=== PATIENT | male | born 1965 | race Caucasian/White ===

== ENCOUNTER 2019-09-15 06:18 | Outpatient (CLI) | payer BC, SELFPAY ==
[2019-09-15 17:27] LABS: SARS-CoV-2 RNA PCR Negative
== END 2019-09-15 06:19 | disposition home or self-care (01) ==
LOC: ANHCOVIDDT 06:18
PROVIDERS: PCP Family Medicine; Visit Provider Internal Medicine Gastroenterology
DX: Z01.812 Encounter for preprocedural laboratory examination (principal); Z11.59 Encounter for screening for other viral diseases
CPT/HCPCS: 87635; C9803; U0003

== ENCOUNTER 2019-09-18 02:46 | Day surgery (SDC) | payer BC, SELFPAY ==
[2019-09-11 10:15] VITALS: BMI 33.2
[2019-09-18 10:00] VITALS: BP 128/89; PULSE 71; RESP 16; TEMP 36.8; O2SAT 99
[2019-09-18] MEDS: LACTATED RINGERS 1,000 ML 150 ML IV CONT (10:10)
--- NOTE | 2019-09-18 11:02 | WPDANESEPPF ---
Anes - Initial Pre Proc Eval Procedure: Operation Date: 09/18/19 11:15 Proposed Procedures p Screening Colonoscopy - Gilmer Garcia MD Date/Time: 09/18/19 11:02 Surgeon: Gilmer Garcia MD Pre Op Diagnosis: neoplasm screening Patient Data Age: 54 Gender: M Height: 6 ft 4 in Weight: 120.4 kg Last Vital Signs Temp 98.3 F 09/18/19 10:00 Pulse 71 09/18/19 10:00 Resp 16 09/18/19 10:00 BP 128/89 09/18/19 10:00 Pulse Ox 99 09/18/19 10:00 Allergies Allergy/AdvReac Type Severity Reaction Status Date / Time No Known Allergies Allergy Verified 09/18/19 09:59 Home Medications Medication Instructions Recorded Confirmed Type hydrochlorothiazide 12.5 mg tablet 12.5 mg PO DAILY #30 tablet 04/12/19 09/18/19 Rx oxybutynin chloride 5 mg 5 mg PO DAILY #30 tablet 06/19/19 09/18/19 Rx tablet,extended release 24 hr zlxbtdgf-xsv-CX-lycopen-lutein 1 tablet PO DAILY 09/11/19 09/18/19 History [Men 50 Plus Multivitamin] Patient hx anesthesia problems: none Family hx anesthesia problems: none PMFSH Past Medical History Medical History (Updated 09/18/19 @ 11:02 by Alberto Pop MD) Hypertension Social History Social History Smoking status: Never smoker Alcohol intake: current Anes - Eval Final PreProcedure Day of Procedure 09/18/19 11:02 Patient weight: obese Heart: regular rate and rhythm Lungs: clear to auscultation Airway: Mallampati scale class II Neurological: alert and oriented Last oral intake: >/= 8 hours ASA classification: II Emergent: no Anesthetic plan: proceed Anesthesia type and monitoring: general GIVS and standard monitoring Informed Consent: The patient's anesthetic plan and its attendant risks and benefits were discussed with the patient/family/POA. Questions were solicited and answers provided to the satisfaction of the patient/family/POA.
--- NOTE | 2019-09-18 11:06 | PM.HPGS ---
History of Present Illness History of Present Illness Consent: Risks, benefits, and alternatives have been discussed and questions answered. Patient agrees to proceed with procedure. Chief complaint: neoplasm screening Narrative: Roldan Galicia is a 54 year old male with colon polyps 5 years ago. Review of Systems Constitutional: Constitutional: Denies headache(s) and Denies weakness Eyes: Eyes: Denies blurry vision ENT: Reports Normal hearing present, Denies headache(s) and Denies neck pain Cardiovascular: Cardiovascular: Denies chest pain and Denies dyspnea Respiratory: Respiratory: Denies dyspnea Gastrointestinal: Gastrointestinal: Reports no additional gastrointestinal complaints Genitourinary: Genitourinary: Denies dysuria Musculoskeletal: Musculoskeletal: Denies neck pain Integumentary/Breasts: Skin/Breast: Denies dry skin Neurologic: Reports Normal hearing present, Denies headache(s) and Denies weakness Psychiatric: Psychiatric: Denies anxiety Endocrine: Endocrine: Denies change in body appearance Hematologic/Lymphatic: Hematologic/Lymphatic: Denies easy bleeding Allergic/Immunologic: Allergic/Immunologic: Denies urticaria FOR[facility]LY [facility] Past Medical History Medical History (Updated 09/18/19 @ 11:07 by Gilmer Garcia MD) Colon polyp Hypertension Social History Social History Smoking status: Never smoker Alcohol intake: current Meds Home Medications and Allergies Home Medications Medication Instructions Recorded Confirmed Type hydrochlorothiazide 12.5 mg tablet 12.5 mg PO DAILY #30 tablet 04/12/19 09/18/19 Rx oxybutynin chloride 5 mg 5 mg PO DAILY #30 tablet 06/19/19 09/18/19 Rx tablet,extended release 24 hr rzslarhx-tzt-IH-lycopen-lutein 1 tablet PO DAILY 09/11/19 09/18/19 History [Men 50 Plus Multivitamin] Allergies Allergy/AdvReac Type Severity Reaction Status Date / Time No Known Allergies Allergy Verified 09/18/19 09:59 Vital Signs Vital Signs - 24 hr 09/18/19 10:00 Temperature 98.3 F Pulse Rate 71 Respiratory Rate 16 Blood Pressure 128/89 Pulse Oximetry 99 Exam Const: General: comfortable and no acute distress HENMT: General nose exam: Normal nares present Eyes: General: appearance normal, both eyes and all related structures Neck: Neck: no JVD Resp: Auscultation: clear to auscultation bilaterally Cardio: Rate: regular rate Rhythm: regular rhythm GI: Inspection: non-distended GI Palp: Yes Soft to palpation Skin: General skin exam: normal color Neuro: General: gait normal Speech: normal speech Extrem: General: normal to inspection Psych: Mental Status: mental status grossly normal Assessment and Plan Assessment and plan (1) Colon polyp: Code(s): K63.5 - Polyp of colon Status: Acute Assessment and Plan: will proceed with colonoscopy (2) Hypertension: Code(s): I10 - Essential (primary) hypertension Status: Acute
[2019-09-18 11:27] VITALS: BP 122/87; PULSE 69; RESP 16; O2SAT 99
[2019-09-18 11:37] VITALS: BP 129/80; PULSE 72; RESP 16; O2SAT 99
[2019-09-18 12:03] VITALS: BP 130/84; PULSE 76; RESP 16; O2SAT 99
== END 2019-09-18 12:04 | disposition home or self-care (01) ==
PROVIDERS: PCP Family Medicine; Visit Provider Internal Medicine Gastroenterology
PROC: 0DJD8ZZ Inspection of Lower Intestinal Tract, Via Natural or Artificial Opening Endoscopic (ICD-10-PCS; CPT 45378; principal; 2019-09-18 11:15)
DX: Z12.11 Encounter for screening for malignant neoplasm of colon (principal); D12.5 Benign neoplasm of sigmoid colon; K63.5 Polyp of colon; K64.8 Other hemorrhoids; I10 Essential (primary) hypertension; E66.9 Obesity, unspecified; Z68.32 Body mass index [BMI] 32.0-32.9, adult
CPT/HCPCS: 45380; 45385; 88305; J2704; J7120

== ENCOUNTER → 2020-10-06 10:14 | Outpatient (CLI) | payer OTHER, BC, SELFPAY ==
--- NOTE | ~2020-10-06 | XR_ITS ---
EXAMINATION: XR shoulder RT min 2V DATE: 10/06/2020 10:38 INDICATION: Right shoulder pain after pulling injury 5 days prior TECHNIQUE: AP internally and externally rotated, AP oblique externally rotated and axillary views of the right shoulder were obtained. COMPARISON: None FINDINGS: Normal alignment. No fracture.Mild acromioclavicular and glenohumeral osteoarthritis with mild nonun iform joint space narrowing but without significant osteophytosis. Visualized portions of the lungs a re clear. Soft tissues are unremarkable. IMPRESSION: Mild right acromioclavicular and glenohumeral osteoarthritis. No acute osseous abnormality. Reviewed, dictated and finalized at location A.
== END ==
PROVIDERS: PCP Family Medicine; Visit Provider Physician Assistant
DX: M25.511 Pain in right shoulder (principal); M19.011 Primary osteoarthritis, right shoulder
CPT/HCPCS: 73030

== ENCOUNTER → 2020-10-22 12:42 | Outpatient (CLI) | payer OTHER, BC, SELFPAY ==
--- NOTE | ~2020-10-22 | MR_ITS ---
EXAMINATION: MR shoulder RT wo con DATE: 10/22/2020 13:37 INDICATION: Unspecified right shoulder pain TECHNIQUE: Magnetic resonance imaging (MRI) of the right shoulder was performed without intravenous c ontrast. Sequences included axial PD-weighted FS FSE, coronal oblique PD-weighted FS FSE, coronal obl ique T2-weighted FS FSE, sagittal PD-weighted FS FSE, and sagittal T1-weighted SE. COMPARISON: Right shoulder radiographs dated 10/06/2020 FINDINGS: Coracoacromial arch: The acromion undersurface is curved in morphology (type II). The coracoacromial ligament is normal. M ild acromioclavicular osteoarthritis. Rotator cuff: The supraspinatus, infraspinatus and teres minor tendons are normal. The subscapularis tendon is norm al. Normal rotator cuff muscle bulk and signal. Biceps tendon, glenoid labrum and glenohumeral cartilage: Long head of the biceps tendon is normal. There is a subtle linear tear extending into the substance of the 12:00 position of the superior glenoid labrum and progression to moderate amorphous degenerati ve tearing at the 11:00 position of the posterior superior glenoid labrum. There is additional tear a t the base of the fore-5:00 position of the anteroinferior glenoid labrum. There is partial thickness cartilage loss and chondral fissuring along the anterior to anteroinferior glenoid with minimal suba rticular edema along the 2:30 position of the anterior rim of the glenoid. Fluid: Physiologic amount of fluid in the glenohumeral joint and biceps tendon sheath. No loose osteochondra l bodies. No abnormal fluid signal in the subacromial/subdeltoid bursa to suggest bursitis. Bones: Normal marrow signal with no edema, fracture or abnormal marrow replacing process. Mild cystic change at the lesser tuberosity. IMPRESSION: 1. Mild glenohumeral osteoarthritis with tears at the anteroinferior and superior to posterior superi or glenoid labrum. 2. Mild acromion clavicular osteoarthritis. Reviewed, dictated and finalized at location A. IMPRESSION: 1. Mild glenohumeral osteoarthritis with tears at the anteroinferior and superi or to posterior superior glenoid labrum. 2. Mild acromion clavicular osteoarthritis.
== END ==
PROVIDERS: PCP Family Medicine; Visit Provider Family Medicine
DX: M17.11 Unilateral primary osteoarthritis, right knee (principal); R20.0 Anesthesia of skin
CPT/HCPCS: 73221

== ENCOUNTER 2020-11-18 12:41 | Outpatient (CLI) | payer OTHER, SELFPAY ==
--- NOTE | ~2020-11-18 | XR_ITS ---
EXAMINATION: XR lg joint inject/asp w image DATE: 11/18/2020 13:23 INDICATION: Right shoulder arthritis and strain. TECHNIQUE: A time-out was performed to verify the patient's name, date of , and procedure to b e performed. The procedure including the risks, benefits, and alternatives was discussed with the pat ient. Risks discussed included bleeding and infection. The patient understood the risks and agreed to proceed. The skin overlying the right shoulder joint was prepped and draped in usual sterile fashio n. Anesthetic was administered with 1% lidocaine subcutaneously. A 22 G needle was advanced under f luoroscopic guidance into the joint. Injection of 1 mL of Omnipaque 240 confirmed intra-articular po sition of the needle. Subsequently, injectate consisting of 3 mL 1% lidocaine and 1 mL 80 mg/mL Depo -Medrol was instilled. The needle was removed and the entry site was cleaned and dressed. There wer e no immediate complications. Fluoroscopy exposure time was 0.1 minutes. The total number of images w as 2. FINDINGS: Real-time fluoroscopy demonstrates the needle in the right glenohumeral joint. IMPRESSION: 1. Fluoroscopy guided right glenohumeral joint injection of local anesthetic and steroid. Reviewed, dictated and finalized at location A. IMPRESSION: 1. Fluoroscopy guided right glenohumeral joint injection of local anesthetic an d steroid.
== END 2020-11-18 12:42 | disposition home or self-care (01) ==
LOC: ANHIMG 12:45
PROVIDERS: PCP Family Medicine; Visit Provider Orthopaedic Surgery
DX: S46.811A Strain of other muscles, fascia and tendons at shoulder and upper arm level, right arm, initial encounter (principal); M19.011 Primary osteoarthritis, right shoulder
CPT/HCPCS: 20610; 77002; J1040; Q9966

== ENCOUNTER → 2021-01-14 08:23 | Outpatient (CLI) | payer BC, SELFPAY ==
[2021-01-14 17:30] LABS: SARS-CoV-2 RNA PCR Negative
== END ==
PROVIDERS: PCP Family Medicine; Visit Provider Family Medicine
DX: J02.9 Acute pharyngitis, unspecified (principal); R50.9 Fever, unspecified; R53.83 Other fatigue; Z20.822 Contact with and (suspected) exposure to COVID-19
CPT/HCPCS: C9803; U0003; U0005

== ENCOUNTER 2021-06-19 07:53 | Outpatient (CLI) | payer BC, SELFPAY ==
--- NOTE | 2021-06-19 | ECG_ITS ---
Measurements Intervals [place] Rate: 68 P: 5 DC: 157 QRS: -6 QRSD: 106 T: 30 QT: 385 QTc: 411 Interpretive Statements SINUS RHYTHM WITHIN NORMAL LIMITS NONDIAGNOSTIC INFERIOR Q-WAVE NO PREVIOUS ECG AVAILABLE FOR COMPARISON Electronically Signed On 06-19-2021 11:16:27 CDT by Sam Nunez M.D.
[2021-06-19 08:45] LABS: Anion Gap 9 mmol/L (8-16); Blood Urea Nitrogen 22 mg/dL (9-20); Calcium 9.6 mg/dL (8.4-10.2); Carbon Dioxide 24 mmol/L (22-30); Chloride 103 mmol/L (98-107); Estimated Glomerular Filt Rate > 60; Glucose 127 mg/dL (65-110); Potassium 4.4 mmol/L (3.4-5.0); Sodium 136 mmol/L (137-145)
== END 2021-06-19 07:54 | disposition home or self-care (01) ==
LOC: ANHLAB 08:02
PROVIDERS: PCP Family Medicine; Visit Provider Orthopaedic Surgery Hand Surgery
DX: M25.511 Pain in right shoulder (principal)
CPT/HCPCS: 36415; 80048; 93005

== ENCOUNTER 2022-12-23 13:29 | Outpatient (CLI) | payer OTHER, SELFPAY | END 2022-12-23 13:30 | disposition home or self-care (01) | PROVIDERS: PCP Family Medicine; Visit Provider Family Medicine | DX: H90.3 Sensorineural hearing loss, bilateral (principal) | CPT/HCPCS: 92557; 92567 ==

== ENCOUNTER 2024-01-09 14:09 | Outpatient (CLI) | payer OTHER, SELFPAY ==
--- NOTE | ~2024-01-09 | XR_ITS ---
EXAMINATION: XR heel LT min 2V DATE: 01/09/2024 14:26 INDICATION: Left heel pain. TECHNIQUE: 2 views of left calcaneus were obtained. COMPARISON: None. FINDINGS: Alignment is normal. No fracture. Joint spaces are normal. IMPRESSION: 1. Normal left calcaneus. Reviewed, dictated and finalized at location B. IMPRESSION: 1. Normal left calcaneus.
== END 2024-01-09 14:10 | disposition home or self-care (01) ==
LOC: GOSHIMG 14:09
PROVIDERS: PCP Nurse Practitioner; Visit Provider Student in an Organized Health Care Education/Training Program
DX: M79.672 Pain in left foot (principal)
CPT/HCPCS: 73650

== ENCOUNTER 2024-07-18 10:19 | Outpatient (CLI) | payer OTHER, SELFPAY | END 2024-07-18 10:20 | disposition home or self-care (01) | LOC: GOSHIMG 10:20 | PROVIDERS: PCP Family Medicine; Visit Provider Nurse Practitioner | DX: M25.561 Pain in right knee (principal) | CPT/HCPCS: 73562 ==

== ENCOUNTER 2024-10-09 14:10 | Outpatient (CLI) | payer OTHER, SELFPAY ==
--- NOTE | ~2024-10-09 | MR_ITS ---
MRI of the right knee Clinical history: Pain Technique: Coronal proton density and proton density-weighted images, sagittal proton-density and T2 fat-sat images, and axial proton-density fat-saturated images were acquired. Following intravenous ad ministration of 20 cc MultiHance gadolinium, T1-weighted fat-sat imaging was performed in the axial, coronal, and sagittal planes. Findings: Anterior and posterior cruciate ligaments are intact. Medial collateral ligament and the la teral collateral complex are intact. Popliteus tendon is intact. There is a large vertical/radial tear of the posterior horn of the medial meniscus. No lateral menisc al tear seen. 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 There is focal moderate to high-grade chondral malacia at the femoral trochlea. Extensor mechanism is intact. Minimal joint effusion present with minimal Macias's cyst. Impression: Large vertical/radial tear of the posterior horn of the medial meniscus. Degenerative changes, as above. Reviewed, dictated and finalized at location . Impression: Large vertical/radial tear of the posterior horn of the medial meniscus. Degenerative changes, as above.
== END 2024-10-09 14:11 | disposition home or self-care (01) ==
PROVIDERS: PCP Family Medicine; Visit Provider Nurse Practitioner
DX: S83.241A Other tear of medial meniscus, current injury, right knee, initial encounter (principal); M17.11 Unilateral primary osteoarthritis, right knee; X58.XXXA Exposure to other specified factors, initial encounter
CPT/HCPCS: 73723; A9577

== ENCOUNTER 2024-11-22 00:21 | Day surgery (SDC) | payer OTHER, SELFPAY ==
[2024-11-07 13:42] VITALS: BMI 29.7
[2024-11-22 12:02] VITALS: BP 116/89; PULSE 82; RESP 19; TEMP 36.6; O2SAT 98; BMI 29.5
[2024-11-22] MEDS: LACTATED RINGERS 1,000 ML 150 ML IV CONT (12:11)
--- NOTE | 2024-11-22 12:19 | WPDANESEPPF ---
Anes - Initial Pre Proc Eval Procedure: Operation Date: 11/22/24 12:45 Proposed Procedures p Esophagogastroduodenoscopy - Gilmer Garcia MD Date/Time: 11/22/24 12:19 Surgeon: Gilmer Garcia MD Pre Op Diagnosis: Dysphagia, unspecified Patient Data Age: 59 Gender: M Height: 1.93 m Weight: 110.1 kg Last Vital Signs Temp 36.6 C 11/22/24 12:02 Pulse 82 11/22/24 12:02 Resp 19 11/22/24 12:02 BP 116/89 11/22/24 12:02 Pulse Ox 98 11/22/24 12:02 O2 Del Method Room Air 11/22/24 12:02 Allergies Allergy/AdvReac Type Severity Reaction Status Date / Time No Known Allergies Allergy Verified 11/22/24 12:01 Home Medications ?Medication ?Instructions ?Recorded ?Confirmed ?Type tamsulosin 0.4 mg capsule See Rx Instructions .Route 10/09/24 11/22/24 Rx .COMPLEX #180 caps hydrochlorothiazide 12.5 mg tablet See Rx Instructions .Route 10/24/24 11/22/24 Rx .COMPLEX #90 tabs lisinopril 40 mg tablet 40 mg PO DAILY #90 tabs 10/24/24 11/22/24 Rx Patient hx anesthesia problems: none Family hx anesthesia problems: none Results Review: All pre-operative results and documents have been reviewed as part of the pre-operative evaluation. [facility] Past Medical History Medical History Colon polyp Hypertension Social History Social History (Updated 11/22/24 @ 12:24 by Ky Hayes DO) Smoking status: Never smoker Tobacco type: cigarettes Smokeless tobacco user: chewing tobacco Alcohol intake: current Alcohol use details: hasn't drank in 6 years Substance use: never Substance use type: does not use Lack of Transportation: No Lack of Food: Never True Current Housing: I Have Housing Concerned About Future Housing: No Difficulty Paying Gas/Electric Bills: No Difficulty Paying for Meds: No Currently Unemployed: No Education: Associate Degree Difficulty w/ Childcare or Family Care: No Living arrangements: with family Spiritual care concerns: No Anes - Eval Final PreProcedure Day of Procedure 11/22/24 12:19 Patient weight: overweight Heart: regular rate and rhythm Lungs: clear to auscultation Airway: Mallampati scale class II Neurological: alert and oriented Last oral intake: >/= 8 hours ASA classification: II Emergent: no Anesthetic plan: proceed Anesthesia type and monitoring: general GIVS and standard monitoring Results Review: All pre-operative results and documents have been reviewed as part of the pre-operative evaluation. Informed Consent: The patient's anesthetic plan and its attendant risks and benefits were discussed with the patient/family/POA. Questions were solicited and answers provided to the satisfaction of the patient/family/POA.
--- NOTE | 2024-11-22 13:13 | PM.HPGS ---
History of Present Illness History of Present Illness Consent: Risks, benefits, and alternatives have been discussed and questions answered. Patient agrees to proceed with procedure. Chief complaint: Dysphagia, unspecified Narrative: Roldan Galicia is a 59 year old male here for first egd, h/o dysphagia Review of Systems Review of Systems: All systems reviewed & are unremarkable except as noted in HPI and below PMFSH Past Medical History Medical History Colon polyp Hypertension Social History Social History (Updated 11/22/24 @ 12:24 by Ky Hayes, ) Smoking status: Never smoker Tobacco type: cigarettes Smokeless tobacco user: chewing tobacco Alcohol intake: current Alcohol use details: hasn't drank in 6 years Substance use: never Substance use type: does not use Lack of Transportation: No Lack of Food: Never True Current Housing: I Have Housing Concerned About Future Housing: No Difficulty Paying Gas/Electric Bills: No Difficulty Paying for Meds: No Currently Unemployed: No Education: Associate Degree Difficulty w/ Childcare or Family Care: No Living arrangements: with family Spiritual care concerns: No Meds Home Medications and Allergies Home Medications ?Medication ?Instructions ?Recorded ?Confirmed ?Type tamsulosin 0.4 mg capsule See Rx Instructions .Route 10/09/24 11/22/24 Rx .COMPLEX #180 caps hydrochlorothiazide 12.5 mg tablet See Rx Instructions .Route 10/24/24 11/22/24 Rx .COMPLEX #90 tabs lisinopril 40 mg tablet 40 mg PO DAILY #90 tabs 10/24/24 11/22/24 Rx Allergies Allergy/AdvReac Type Severity Reaction Status Date / Time No Known Allergies Allergy Verified 11/22/24 12:01 Vital Signs Vital Signs - 24 hr 11/22/24 12:02 Temperature 97.9 F Pulse Rate 82 Respiratory Rate 19 Blood Pressure 116/89 Pulse Oximetry 98 Oxygen Delivery Room Air Exam Const: General: comfortable and no acute distress HENMT: Face/Nose/Sinus: Normal nares present Eyes: General: appearance normal, both eyes and all related structures Neck: Neck: no JVD Resp: Auscultation: clear to auscultation bilaterally Cardio: Rate: regular rate Rhythm: regular rhythm GI: Inspection: non-distended GI Palp: Yes Soft to palpation Skin: General skin exam: normal color Neuro: Speech: normal speech Extrem: General: normal to inspection Psych: Mental Status: mental status grossly normal Assessment and Plan Assessment and plan (1) Dysphagia: Code(s): R13.10 - Dysphagia, unspecified Status: Acute Assessment and Plan: egd with bx
--- NOTE | 2024-11-22 13:19 | S_PTH ---
PATIENT: Roldan Galicia LOC: [facility]#:[id number] AGE/SX: 59/M ROOM: RE11/22/[address]: Gilmer Garcia MD : 1965 BED: DIS: 11/22/2024 SPEC #: [id number] RECD: 11/22/24 13:43 STATUS: DANYEL REQ #: [id number] NILDA: 11/22/24 13:[address]: Gilmer Garcia DEPT: [facility] Surgical RECD BY: Lucía Larsen ENTERED: 11/22/24 13:43 SP TYPE: Surgical OTHR DR: Benita Samuels DO Tissues: A - Esophageal Biopsy B - Esophageal Biopsy C - Gastric Biopsy Procedures: Hematoxylin and Eosin Stain Gross and Microscopic Level 4
[2024-11-22 13:23] VITALS: BP 128/81; PULSE 69; RESP 15; O2SAT 98
[2024-11-22 13:33] VITALS: BP 129/88; PULSE 73; RESP 16; O2SAT 98
[2024-11-22 13:43] VITALS: BP 125/79; PULSE 62; RESP 19; O2SAT 98
== END 2024-11-22 13:43 | disposition home or self-care (01) ==
PROVIDERS: PCP Family Medicine; Referring Provider Nurse Practitioner; Visit Provider Internal Medicine Gastroenterology
PROC: 0DJ08ZZ Inspection of Upper Intestinal Tract, Via Natural or Artificial Opening Endoscopic (ICD-10-PCS; CPT 43239; principal; 2024-11-22 12:45)
DX: K20.0 Eosinophilic esophagitis (principal); I10 Essential (primary) hypertension; F17.220 Nicotine dependence, chewing tobacco, uncomplicated; Z86.0100 Personal history of colon polyps, unspecified
CPT/HCPCS: 43239; 88305; J2003; J2704; J7120

== ENCOUNTER 2024-11-30 00:17 | Day surgery (SDC) | payer OTHER, SELFPAY ==
[2024-11-27 15:27] VITALS: BMI 29.5
[2024-11-30 06:17] VITALS: BP 109/78; PULSE 76; RESP 16; TEMP 36.1; O2SAT 98
[2024-11-30] MEDS: LACTATED RINGERS 1,000 ML 150 ML IV CONT (06:27)
--- NOTE | 2024-11-30 07:03 | WPDANESEPPF ---
Anes - Initial Pre Proc Eval Procedure: Operation Date: 11/30/24 07:30 Proposed Procedures p Screening Colonoscopy - Gilmer Garcia MD Date/Time: 11/30/24 07:03 Surgeon: Gilmer Garcia MD Pre Op Diagnosis: Encounter for screening for malignant neoplasm of Patient Data Age: 59 Gender: M Height: 1.93 m Weight: 107.5 kg Last Vital Signs Temp 36.1 C L 11/30/24 06:17 Pulse 76 11/30/24 06:17 Resp 16 11/30/24 06:17 BP 109/78 11/30/24 06:17 Pulse Ox 98 11/30/24 06:17 O2 Del Method Room Air 11/30/24 06:17 Allergies Allergy/AdvReac Type Severity Reaction Status Date / Time No Known Allergies Allergy Verified 11/30/24 06:16 Home Medications ?Medication ?Instructions ?Recorded ?Confirmed ?Type hydrochlorothiazide 12.5 mg tablet See Rx Instructions .Route 10/24/24 11/30/24 Rx .COMPLEX #90 tabs lisinopril 40 mg tablet 40 mg PO DAILY #90 tabs 10/24/24 11/30/24 Rx tamsulosin 0.4 mg capsule 0.4 mg PO DAILY 11/27/24 11/30/24 History Patient hx anesthesia problems: none Family hx anesthesia problems: none Results Review: All pre-operative results and documents have been reviewed as part of the pre-operative evaluation. [facility] Past Medical History Medical History Colon polyp Hypertension Social History Social History Smoking status: Never smoker Tobacco type: cigarettes Smokeless tobacco user: chewing tobacco Alcohol intake: never Alcohol use details: hasn't drank in 6 years Substance use: never Substance use type: does not use Lack of Transportation: No Lack of Food: Never True Current Housing: I Have Housing Concerned About Future Housing: No Difficulty Paying Gas/Electric Bills: No Difficulty Paying for Meds: No Currently Unemployed: No Education: Associate Degree Difficulty w/ Childcare or Family Care: No Living arrangements: with family Spiritual care concerns: No Anes - Eval Final PreProcedure Day of Procedure 11/30/24 07:03 Patient weight: overweight Heart: regular rate and rhythm Lungs: clear to auscultation Airway: Mallampati scale class II Neurological: alert and oriented Last oral intake: >/= 8 hours ASA classification: II Emergent: no Anesthetic plan: proceed Anesthesia type and monitoring: general GIVS and standard monitoring Results Review: All pre-operative results and documents have been reviewed as part of the pre-operative evaluation. Informed Consent: The patient's anesthetic plan and its attendant risks and benefits were discussed with the patient/family/POA. Questions were solicited and answers provided to the satisfaction of the patient/family/POA.
--- NOTE | 2024-11-30 07:29 | PM.HPGS ---
History of Present Illness History of Present Illness Consent: Risks, benefits, and alternatives have been discussed and questions answered. Patient agrees to proceed with procedure. Chief complaint: Encounter for screening for malignant neoplasm of Narrative: Roldan Galicia is a 59 year old male with colon polyp in 2019 Review of Systems Review of Systems: All systems reviewed & are unremarkable except as noted in HPI and below PMFSH Past Medical History Medical History Colon polyp Hypertension Social History Social History Smoking status: Never smoker Tobacco type: cigarettes Smokeless tobacco user: chewing tobacco Alcohol intake: never Alcohol use details: hasn't drank in 6 years Substance use: never Substance use type: does not use Lack of Transportation: No Lack of Food: Never True Current Housing: I Have Housing Concerned About Future Housing: No Difficulty Paying Gas/Electric Bills: No Difficulty Paying for Meds: No Currently Unemployed: No Education: Associate Degree Difficulty w/ Childcare or Family Care: No Living arrangements: with family Spiritual care concerns: No Meds Home Medications and Allergies Home Medications ?Medication ?Instructions ?Recorded ?Confirmed ?Type hydrochlorothiazide 12.5 mg tablet See Rx Instructions .Route 10/24/24 11/30/24 Rx .COMPLEX #90 tabs lisinopril 40 mg tablet 40 mg PO DAILY #90 tabs 10/24/24 11/30/24 Rx tamsulosin 0.4 mg capsule 0.4 mg PO DAILY 11/27/24 11/30/24 History Allergies Allergy/AdvReac Type Severity Reaction Status Date / Time No Known Allergies Allergy Verified 11/30/24 06:16 Vital Signs Vital Signs - 24 hr 11/30/24 06:17 Temperature 97 F L Pulse Rate 76 Respiratory Rate 16 Blood Pressure 109/78 Pulse Oximetry 98 Oxygen Delivery Room Air Exam Const: General: comfortable and no acute distress HENMT: Face/Nose/Sinus: Normal nares present Eyes: General: appearance normal, both eyes and all related structures Neck: Neck: no JVD Resp: Auscultation: clear to auscultation bilaterally Cardio: Rate: regular rate Rhythm: regular rhythm GI: Inspection: non-distended GI Palp: Yes Soft to palpation Skin: General skin exam: normal color Neuro: Speech: normal speech Extrem: General: normal to inspection Psych: Mental Status: mental status grossly normal Assessment and Plan Assessment and plan (1) Colon polyp: Code(s): K63.5 - Polyp of colon Status: Acute Assessment and Plan: colonoscopy
--- NOTE | 2024-11-30 07:39 | S_PTH ---
PATIENT: Roldan Galicia LOC: [facility]#:[id number] AGE/SX: 59/M ROOM: RE11/30/[address]: Gilmer Garcia MD : 1965 BED: DIS: 11/30/2024 SPEC #: [id number] RECD: 11/30/24 09:49 STATUS: DANYEL REEster #: [id number] NILDA: 11/30/24 07:[address]: Gilmer Garcia DEPT: [facility] Surgical RECD BY: Lucía Larsen ENTERED: 11/30/24 09:49 SP TYPE: Surgical OTHR DR: Benita Samuels DO Tissues: A - Colon Polypectomy Procedures: Hematoxylin and Eosin Stain Gross and Microscopic Level 4
[2024-11-30 07:44] VITALS: BP 101/70; PULSE 71; RESP 16; O2SAT 95
[2024-11-30 07:54] VITALS: BP 98/71; PULSE 68; RESP 14; O2SAT 94
[2024-11-30 08:04] VITALS: BP 115/84; PULSE 68; RESP 15; O2SAT 98
[2024-11-30] MEDS: PROPARACAINE HCL 0.5% 15 ML OPHTH SOLN 1 DROP EACH EYE (08:14)
[2024-11-30] MEDS: DICLOFENAC SODIUM 0.1% OPHTH SOLN 2.5 ML BOTTLE 1 DROP EACH EYE (08:21)
== END 2024-11-30 08:26 | disposition home or self-care (01) ==
PROVIDERS: PCP Family Medicine; Visit Provider Internal Medicine Gastroenterology
PROC: 0DJD8ZZ Inspection of Lower Intestinal Tract, Via Natural or Artificial Opening Endoscopic (ICD-10-PCS; CPT 45378; principal; 2024-11-30 07:30)
DX: Z12.11 Encounter for screening for malignant neoplasm of colon (principal); K63.5 Polyp of colon; K64.8 Other hemorrhoids
CPT/HCPCS: 45385; 88305; A9270; J2704; J7120

== ENCOUNTER 2024-12-19 10:17 | Outpatient (CLI) | payer OTHER, SELFPAY ==
--- NOTE | 2024-12-19 10:33 | ECG_ITS ---
Test Date: 2024-12-19 10:45:18 Measurements Intervals [place] Rate: 98 P: 49 WV: 160 QRS: -37 QRSD: 102 T: 17 QT: 355 QTc: 455 Interpretive Statements SINUS RHYTHM LEFT AXIS DEVIATION DELAYED PRECORDIAL R/S TRANSITION BORDERLINE ST-T WAVE ABNORMALITY- INFERIOR LEADS BASELINE ARTIFACT- II, III, AVF, V5 BORDERLINE ECG No previous ECG available for comparison Electronically Signed On 12-19-2024 10:48:10 CDT by Sin Cai D.O.
== END 2024-12-19 10:18 | disposition home or self-care (01) ==
LOC: ANHSURGERY 10:22
PROVIDERS: PCP Family Medicine; Visit Provider Orthopaedic Surgery
DX: Z01.810 Encounter for preprocedural cardiovascular examination (principal); R94.31 Abnormal electrocardiogram [ECG] [EKG]; I10 Essential (primary) hypertension
CPT/HCPCS: 93005

== ENCOUNTER 2024-12-21 00:44 | Day surgery (SDC) | payer OTHER, SELFPAY ==
--- NOTE | 2024-12-17 11:18 | SUR.PREOP ---
[facility] has started construction of its new state of the art ER which will open Spring 2026. With this, we anticipate parking may be a challenge for some our surgical patients and families. Parking spaces are limited but are available for all Surgical, obstetrics, and ER patients sharing this lot. If you arrive and find you are having a hard time finding a parking space, please note that we understand the challenges, please drive around the hospital and park near Hospital Entrance 1. When you enter this entrance, you can ask a volunteer to direct or take you back to the surgical waiting area to check in. We appreciate everyone?s understanding of these expected challenges while we build for your future. Report to the Outpatient Waiting Room, entrance under the green pavilion located off [address], at time _830am__ on date _12/21/24__. Planned Procedure Time: __1030__.? Time changes happen often and if your time is changed the preop area will call you the afternoon before. - You and your visitor will be asked to self-screen and do not enter if you have any COVID symptoms. Please call surgeon if you need to reschedule. - A mask is optional within the hospital at this time. Patients may have clear liquids (water, carbonated beverages, clear teas, apple juice) until 3 hours prior to surgery with a maximum of 20 ounces. - No food from midnight until time of surgery and no smoking, or chewing tobacco (or any form of nicotine). No chewing gum, candy or mints. Take only the following medications with a SIP of water on the morning of surgery: ___None DO NOT STOP ANY OF YOUR OTHER PRESCRIPTION MEDICATIONS PRIOR TO SURGERY EXCEPT THE FOLLOWING Hold all vitamins and supplements for 3 days per anesthesiologist. Medications to discontinue per physician N/a Date to take last dose____N/a Please no make-up, nail uzbek, hairspray, perfume, deodorant, or body powder the day of surgery.? No jewelry (including any body piercings) or valuables the day of surgery, leave them at home.? Please take a shower or bath the night before, or the morning of, surgery with an antibacterial soap.? Wear comfortable, loose fitting clothing.? Children are encouraged to wear pajamas. - Jewelry must be removed prior to entering the operating room.? Rings and piercings that are not removed may be cut off. - The hospital will not accept responsibility for valuables.? - Please leave all valuables, including medications, at home the day of surgery. If you are going home after surgery, a licensed feeder driver must drive you home.? - NO public transportation without another adult if you receive anesthesia. - We recommend that an adult stay with you for 24 hours following discharge. - We also recommend that you do not drive, make important decision, drink alcoholic beverages, or take any drugs that were not prescribed by your health care provider for at least 24 hours after your discharge time. Follow any additional instructions given to you from your surgeon. Telephone instructions given to __John____and asked if any additional questions and then verbalized understanding. Patient advised to call surgeon office or pre surgery nurse liaison [phone] if any additional questions.
[2024-12-21] VITALS (8 sets, daily range): BP systolic 112–160; BP diastolic 75–99; PULSE 65–83; RESP 13–18; TEMP 36.3–37.1; O2SAT 94–100
--- OUTSIDE RECORDS SUMMARY | 2024-12-21 00:47 | XMS_ITS | Data Portability ---
Author Organization [facility] Address [address] [place] [address] Assessment No assessment recorded. Plan of Treatment Reminders Order Date Submit Date Provider Last Modified By Organization Details Last Modified Time Details Appointments None recorded. Lab SARS CoV 2 RNA (COVID-19), QL, automotive parts specialist-PCR, respiratory specimen - [place] 2:30 2019 020 [facility] (Lab), [address] [place], [address], 0 16:44:40 Referral None recorded. Procedures None recorded. Surgeries None recorded. Imaging None recorded. Medication Orders None recorded. Patient TargetsNo targets recorded. Patient InstructionsNo instructions recorded. Reason for Referral None Reported. Results Created Date Observation Date Name Description Value Unit Range Abnormal Flag Note LastModifiedBy Organization Detail LastModifiedTime 12/10/19 20 12/10/2019 SARS CoV 2 RNA (COVI D-19) , QL, automotive parts specialist-P CR, respi rator y speci men sars - cov - 2 PCR NEGATI VE mL Not Available [facility] (Lab) [address] [place], [address], 12/11/2019 16:44:40 12/10/19 20 12/10/2019 SARS CoV 2 RNA (COVI D-19) , QL, automotive parts specialist-P CR, respi rator y speci men covidcom1 COMME NTS: This assay is desig trevor to detec t the RdRp and N genes of SARS- CoV-2 using nucle ic acid ampli ficat ion. A negat rodney resul t does not precl ude the possi bilit y of 2019- nCoV infec tion since the adequ acy of sampl e colle ction and/o r low viral burde n may resul t in the prese nce of viral nucle ic acids level s below the carola tical sensi tivit y of this test metho d. Not Available [facility] (Lab) [address], [place], [address], 12/11/2019 16:44:40 12/10/19 20 12/10/2019 SARS CoV 2 RNA (COVI D-19) , QL, automotive parts specialist-P CR, respi rator y speci men covidcom2 Posit rodney resul ts are indic ative of the prese nce of SARS- CoV-2 RNA and do not rule out bacte rial infec tion or co-in fecti on with other virus es. Not Available [facility] (Lab) [address], [place], [address], 12/11/2019 16:44:40 12/10/19 20 12/10/2019 SARS CoV 2 RNA (COVI D-19) , QL, automotive parts specialist-P CR, respi rator y speci men covidcom3 Test resul ts shoul d be used along with other clini randall obser vatio ns, patie nt histo ry, epide miolo gical infor matio n and labor [facility] diagn osis. Not Available [facility] (Lab) [address], [place], [address], 12/11/2019 16:44:40 12/10/19 20 12/10/2019 SARS CoV 2 RNA (COVI D-19) , QL, automotive parts specialist-P CR, respi rator y speci men covidcom4 This test has recei [place] FDA Emerg ency Use Autho rizat ion and has been verif ied by [facility] . This test is only autho rized for the durat ion of the decla ratio n and the circu mstan oleg that exist to justi fy the autho rizat ion of the emerg ency use of in vitro diagn ostic tests for the detec tion of SARS- CoV-2 virus and/o r diagn osis of COVID -19 infec tion under secti on 564 (b) (1) of the Act. 11 U.S.C . 360bb b-3 (b) (1), unles s the autho eyad hu is termi nated or revok ed soone r. Not Available [facility] (Lab) [address] [place], [address], 12/11/2019 16:44:40 12/10/19 20 12/10/2019 SARS CoV 2 RNA (COVI D-19) , QL, automotive parts specialist-P CR, respi rator y speci men covidcom5 [facility] is certi fied under CLIA- 88 as quali fied to perfo rm high compl exity testi ng. This testi ng was perfo rmed in the [facility] [place] [address] (CLIA Licen se #[id number], CAP #[id number], AU-ID #[id number]). Not Available [facility] (Lab) [address] [place], [address], 12/11/2019 16:44:40 12/10/19 20 12/10/2019 SARS CoV 2 RNA (COVI D-19) , QL, automotive parts specialist-P CR, respi rator y speci men covidcom6 Facts heet for healt hcare provi ders: https ://ww w.fda .gov/ media /1362 56/do wnloa d Facts heet for patie nts: https ://ww w.fda .gov/ media /1362 57/do wnloa d Not Available [facility] (Lab) [address] [place], [address], 12/11/2019 16:44:40 Result Notes None recorded. Medical Equipment None Reported. Vitals None Recorded Social History None recorded. Functional Status None recorded. Mental Status None recorded. Family History Nothing Reported. Medical History No medical history recorded. Past Encounters Encounter ID Performer Location Encounter Start Date Encounter Closed Date Diagnosis/Indication Diagnosis SNOMED-CT Code Diagnosis ICD10 Code Diagnosis IMO Codes Diagnosis Note [id number] [facility] Anuj wilhelm [address] [place] [address] 12/10/2019 12:59:42 12/11/2019 07:39:13 Suspected COVID-19 704517410 Z03.818 Health Concerns Section Related Observation LastModified by Organization Detai ls LastModified Time None Recorded Concern Status LastModified by Organization Details LastModified Time None Recorded Advance Directives Directive None Recorded Payers Insurance Date Sequence Insurance Name Policy Number Policy Abrams Covered Member ID Abrams Member ID Guarantor Name 12/10/2019 1 [facility] [id number] Roldan Galicia [id number] Roldan Gal[place] Notes Date Note Type Note Provider Name and Address Organization Details Recorded Time 12/10/2019 text/html COVID-19 Symptom s July 2019Reported by PatientUpper Respiratory SymptomsFor covid-19 signs and symptoms, patient reportsnew loss of taste or smellbut reportsshortness of breath same,chills same,muscle pain same,headache same,vomiting or diarrhea same,fatigue same, andanorexia same. [facility] Attn: Accounting,[address] [place], [address], [place] [facility] 12/10/2019 14:52:14
--- NOTE | 2024-12-21 07:23 | WPDHPUPDATE1 ---
History and Physical Update Update Date/Time: 12/21/24 07:23 History and Physical has been reviewed, including an updated exam of the patient. There are NO changes in the patient's condition. Risks, benefits, and alternatives have been discussed and questions answered. Patient agrees to proceed with procedure.
--- NOTE | 2024-12-21 09:40 | WPDANESEPPF ---
Anes - Initial Pre Proc Eval Procedure: Operation Date: 12/21/24 10:30 Proposed Procedures p Right Knee Arthroscopy - Avery Roque MD Date/Time: 12/21/24 09:40 Surgeon: Avery Roque MD Pre Op Diagnosis: Rt Knee Med Meniscus tear Patient Data Age: 59 Gender: M Height: 1.91 m Weight: 109 kg Allergies Allergy/AdvReac Type Severity Reaction Status Date / Time No Known Allergies Allergy Verified 12/17/24 11:05 Home Medications ?Medication ?Instructions ?Recorded ?Confirmed ?Type hydrochlorothiazide 12.5 mg tablet See Rx Instructions .Route 10/24/24 12/17/24 Rx .COMPLEX #90 tabs lisinopril 40 mg tablet 40 mg PO DAILY #90 tabs 10/24/24 12/17/24 Rx tamsulosin 0.4 mg capsule 0.4 mg PO DAILY 11/27/24 12/17/24 History omeprazole 20 mg capsule,delayed 20 mg PO BID #180 caps 12/03/24 12/17/24 Rx release chlorhexidine gluconate 4 % 1 applic topical ONCE #237 mL 12/14/24 12/17/24 Rx topical liquid (Hibiclens) Patient hx anesthesia problems: none Family hx anesthesia problems: none Results Review: All pre-operative results and documents have been reviewed as part of the pre-operative evaluation. [facility] Past Medical History Medical History Colon polyp Hypertension Social History Social History Smoking status: Never smoker Tobacco type: cigarettes Smokeless tobacco user: chewing tobacco Alcohol intake: never Alcohol use details: hasn't drank in 6 years Substance use: never Substance use type: does not use Lack of Transportation: No Lack of Food: Never True Current Housing: I Have Housing Concerned About Future Housing: No Difficulty Paying Gas/Electric Bills: No Difficulty Paying for Meds: No Currently Unemployed: No Education: Associate Degree Difficulty w/ Childcare or Family Care: No Living arrangements: with family Spiritual care concerns: No Anes - Eval Final PreProcedure Day of Procedure 12/21/24 09:40 Patient weight: obese Heart: regular rate and rhythm Lungs: clear to auscultation Airway: Mallampati scale class II Neurological: alert and oriented Last oral intake: >/= 8 hours ASA classification: III Emergent: no Anesthetic plan: proceed Anesthesia type and monitoring: general LMA and standard monitoring Results Review: All pre-operative results and documents have been reviewed as part of the pre-operative evaluation. Informed Consent: The patient's anesthetic plan and its attendant risks and benefits were discussed with the patient/family/POA. Questions were solicited and answers provided to the satisfaction of the patient/family/POA.
[2024-12-21] MEDS: ACETAMINOPHEN 500 MG TABLET 1000 MG PO (10:15)
[2024-12-21] MEDS: LACTATED RINGERS 1,000 ML 30 ML IV CONT ×2 (10:15→11:36)
[2024-12-21] MEDS: CELECOXIB 200 MG CAPSULE PO (10:15)
[2024-12-21] MEDS: ceFAZolin 2 GM in SODIUM CHLORIDE 0.9% IV 50 ML 100 ML IVPB (10:41)
--- NOTE | 2024-12-21 12:39 | W.PM.PROC2 ---
Procedure Note - Detailed Date of Procedure 12/21/24 Pre-op Diagnosis Rt Knee Med Meniscus tear Post-op Diagnosis Same (same with LATERAL MENISCUS TEAR) Procedure Performed RIGHT KNEE SCOPE Surgeon Avery Roque MD Anesthesia General Description of Procedure PATIENT WAS TAKEN TO THE OR. RIGHT LEG WAS PREPPED AND DRAPED STERILE. TROCARS WERE PLACED IN THE USUAL FASHION. CAMERA WAS INTRODUCED. THERE WAS CHONDROMALACIA TO THE PATELLA FEMORAL JOINT. THERE WAS A LOT OF SYNOVITIS IN ALL COMPARTMENTS. THE MEDIAL COMPARTMENT SHOWED CHONDROMALACIA TO THE MEDIAL FEMORAL CONDYLE. A SHAVER WAS USED TO PREFORM A CHONDROPLASTY. THERE WAS A COMPLEX MEDIAL MENISCUS TEAR. THE TEAR WAS RESECTED WITH A BITER AND A SHAVER DOWN TO A SMOOTH BASE. THE ACL WAS INTACT. THE LATERAL MENISCUS WAS TORN AT THE ANTERIOR HORN. THE TEAR WAS RESECTED. THE LATERAL COMPARTMENT HAD GRADE 2 CHONDROMALACIA AT THE LATERAL PLATEAU. CHONDROPLASTY WAS PREFORMED. A SYNOVECTOMY WAS PREFORMED WELL. THE PATELLO FEMORAL JOINT UNDERWENT CHONDROPLASTY. THERE WAS GRADE 3 CHONDROMALACIA IN MOST OF THE TROCHLEA AND PART OF THE PATELLA. THERE WAS AN AREA AT THE LATERAL DISTAL TROCHLEA WITH COMPLETE FULL THICKNESS CARTILAGE DEFECT. THE DEFECT ARTICULATED WITH THE LATERAL FACET OF THE PATELLA AT APPROXIMATELY 45 DEG OF FLEXION. SYNOVECTOMY WAS PREFORMED IN THE SUPERIOR MEDIAL COMPARTMENT. THE WOUNDS WERE APPROXIMATED WITH 4.0 NYLON. STERILE DRESSING WAS APPLIED. PATIENT WAS EXTUBATED. Estimated Blood Loss 5 Complications No immediate complications Condition Stable Disposition PACU
[2024-12-21] MEDS: fentaNYL CITRATE INJ (*CRX) 100 MCG/2 ML VIAL 25 MCG IV PUSH ×2 (12:50→12:53)
== END 2024-12-21 14:35 | disposition home or self-care (01) ==
PROVIDERS: PCP Family Medicine; Visit Provider Orthopaedic Surgery
PROC: (CPT 29870; principal; 2024-12-21 10:30)
DX: S83.231A Complex tear of medial meniscus, current injury, right knee, initial encounter (principal); S83.281A Other tear of lateral meniscus, current injury, right knee, initial encounter; M94.261 Chondromalacia, right knee; M65.861 Other synovitis and tenosynovitis, right lower leg; X58.XXXA Exposure to other specified factors, initial encounter; I10 Essential (primary) hypertension; F17.220 Nicotine dependence, chewing tobacco, uncomplicated; E66.9 Obesity, unspecified; Z68.30 Body mass index [BMI] 30.0-30.9, adult; Z86.0100 Personal history of colon polyps, unspecified
CPT/HCPCS: 29880; J0690; A9270; J1100; J2003; J2405; J2704; J3010; J7120